=== PATIENT | female | born 1960 | race Caucasian/White ===

== ENCOUNTER 2019-05-11 12:16 | Emergency (ER) | payer MEDICAID ==
[~2019-05-11] VITALS: Ht 167.6 cm; Wt 86.2 kg
[2019-05-11 12:16] VITALS: BP_SYST 140
[2019-05-11] MEDS ORDERED: AMOXICILLIN 500 MG CAPSULE PO ONE (13:15)
[2019-05-11 13:20] VITALS: BP_SYST 140
== END 2019-05-11 13:20 | disposition home or self-care (01) ==
LOC: SED 12:16
DX: J02.8 Acute pharyngitis due to other specified organisms (principal); B96.89 Other specified bacterial agents as the cause of diseases classified elsewhere; F17.210 Nicotine dependence, cigarettes, uncomplicated
CPT/HCPCS: 99283

== ENCOUNTER 2021-03-17 14:09 | Emergency (ER) | payer MEDICAID, SELFPAY ==
[~2021-03-17] VITALS: Ht 167.6 cm; Wt 86.2 kg
[2021-03-17 14:18] VITALS: BP_SYST 179
[2021-03-17] MEDS ORDERED: DEC4 PO (14:29)
[2021-03-17] MEDS ORDERED: ZINC50TA69 PO (14:29)
== END 2021-03-17 14:39 | disposition home or self-care (01) ==
LOC: SED 14:09
DX: U07.1 COVID-19 (principal); I10 Essential (primary) hypertension; Z79.899 Other long term (current) drug therapy
CPT/HCPCS: 99283